=== PATIENT | male | born 1990 | race Two or more races ===

== ENCOUNTER 2022-10-15 09:13 | Emergency (ER) | payer OTHER ==
[~2022-10-15] VITALS: Ht 182.9 cm; Wt 104.3 kg
[~2022-10-15 09:13] MED LIST: ZANTAC150 MG PO
== END 2022-10-15 12:19 | disposition home or self-care (01) ==
LOC: ER 09:13
DX: N39.0 Urinary tract infection, site not specified (principal); R53.81 Other malaise; Z71.1 Person with feared health complaint in whom no diagnosis is made

== ENCOUNTER 2023-02-28 12:32 | Emergency (ER) | payer OTHER ==
[~2023-02-28] VITALS: Ht 182.9 cm; Wt 90.7 kg
[2023-02-28 14:11] LABS: HEMATOCRIT 41.4 % (39.0-48.0); HEMOGLOBIN 14.2 g/dL (13-16.00); MEAN CELL VOLUME 85.6 fL (80.0-100.00); MEAN CORPUSCULAR HEMOGLOBIN 29.2 pg (27.00-32.0); MEAN CORPUSCULAR HGB CONC 34.2 g/dl (32.0-36.0); PLATELET COUNT 217 K/uL (150-450); RED BLOOD COUNT 4.84 M/uL (4.00-6.00); RED CELL DISTRIBUTION WIDTH 13.3 % (11.5-14.5)
[2023-02-28 14:38] LABS: BILIRUBIN TOTAL 0.34 mg/dL (0.3-1.2); CALCIUM 9.4 mg/dL (8.5-10.1); CREATININE SERUM 0.88 mg/dL (0.70-1.30); GFR 99.13; GLOBULINA 3.9 G/DL (2.4-3.5); POTASSIUM 4.21 mEq/L (3.5-5.1); TOTAL PROTEIN 7.9 gm/dL (6.4-8.2)
[2023-02-28] MEDS ORDERED: VISTARIL25 MG PO (14:48)
== END 2023-02-28 15:36 | disposition home or self-care (01) ==
LOC: ER 12:32
PROVIDERS: General Practice
DX: R00.2 Palpitations (principal); R53.81 Other malaise; Z20.822 Contact with and (suspected) exposure to COVID-19